=== PATIENT | female | born 1955 | race Two or more races ===

== ENCOUNTER 2023-10-01 13:54 | Emergency (ER) | payer OTHER ==
[~2023-10-01] VITALS: Ht 165.1 cm; Wt 63.5 kg
[2023-10-01] MEDS ORDERED: TRICOR145 MG PO (14:02)
[2023-10-01] MEDS ORDERED: LEVOTHYROXINE25 MCG PO (14:02)
[2023-10-01] MEDS ORDERED: COZAAR25 MG PO (14:02)
[2023-10-01] MEDS ORDERED: DIPHENHYDRAMINE HCL 50 MG/ML VIAL 1ML IM STA (17:08)
[2023-10-01] MEDS ORDERED: ATARAX25 MG PO (17:57)
== END 2023-10-01 18:04 | disposition home or self-care (01) ==
LOC: ER 13:54
DX: R21 Rash and other nonspecific skin eruption (principal); T78.40XA Allergy, unspecified, initial encounter; E03.8 Other specified hypothyroidism; Z88.0 Allergy status to penicillin; Z91.013 Allergy to seafood
CPT/HCPCS: 96372; 99282; J1200